=== PATIENT | male | born 1955 | race Caucasian/White ===

== ENCOUNTER → 2017-09-12 17:53 | Emergency (ER) | payer BC, OTHER ==
[~2017-09-12 17:53] MED LIST: Acetaminop/Codeine 30 MG TAB* 1 TAB (300 MG/30 MG) PO ONE
[2017-09-12 18:47] VITALS: BP 154/75
--- NOTE | 2017-09-12 18:48 | UC ---
Back Pain HPI - HPI Summary HPI Summary: 62 year old male presents with right upper back pain after falling while shoveling snow. - History of Current Complaint Chief Complaint: UCBackPain Stated Complaint: FALL/ BACK PAIN Time Seen by Provider: 09/12/17 18:39 Hx Obtained From: Patient Onset/Duration: Sudden Onset Severity Initially: Moderate Severity Currently: Moderate Pain Scale Used: 0-10 Numeric - 7 Character: Sharp Aggravating Factor(s): Movement Alleviating Factor(s): Position - Allergies/Home Medications Allergies/Adverse Reactions: Allergies Allergy/AdvReac Type Severity Reaction Status Date / Time Rifampin Allergy Severe Itching Verified 09/12/17 18:42 Home Medications: Home Medications Ibuprofen [Ibuprofen 200 MG] 200 mg PO Q6HR PRN 09/12/17 [History Confirmed ] PMH/Surg Hx/FS Hx/Imm Hx Previously Healthy: Yes - Surgical History Surgical History: Yes Surgery Procedure, Year, and Place: KIDNEY STENTS (REMOVED) - Family History Known Family History: Positive: None - Social History Alcohol Use: Occasionally Substance Use Type: None Smoking Status (MU): Former Smoker Amount Used/How Often: 2 PPD X 20 YEARS Have You Smoked in the Last Year: No When Did the Patient Quit Smoking/Using Tobacco: 25 YEARS AGO - Immunization History Most Recent Influenza Vaccination: 05/2017 Review of Systems Constitutional: Negative Skin: Negative Eyes: Negative ENT: Negative Respiratory: Negative Cardiovascular: Negative Gastrointestinal: Negative Genitourinary: Negative Motor: Negative Neurovascular: Negative Musculoskeletal: Other: - right upper back pain Neurological: Negative Psychological: Negative All Other Systems Reviewed And Are Negative: Yes Physical Exam Triage Information Reviewed: Yes Vital Signs: Initial Vital Signs Temp 36.9 C 09/12/17 18:37 Pulse 94 09/12/17 18:37 Resp 16 09/12/17 18:37 BP 154/75 09/12/17 18:37 Pulse Ox 97 09/12/17 18:37 Vital Signs Reviewed: Yes Eye Exam: Normal ENT Exam: Normal Dental Exam: Normal Neck exam: Normal Neck: Positive: 1 Respiratory Exam: Normal Cardiovascular Exam: Normal Abdominal Exam: Normal Musculoskeletal: Positive: Other: - right upper back pain Neurological Exam: Normal Psychological Exam: Normal Skin Exam: Normal Back Pain Course/Dx - Differential Dx/Diagnosis Provider Diagnoses: right upper back and rib contusion Discharge - Discharge Plan Condition: Stable Disposition: HOME Prescriptions: Meloxicam [Mobic] 7.5 mg PO BID #30 tab Methocarbamol TAB* [Robaxin 500 MG TAB*] 500 mg PO TID PRN #30 tab PRN Reason: Spasms - Back Patient Education Materials: Back Pain (ED) Referrals: Abilio Yeh MD [Primary Care Provider] -
--- NOTE | 2017-09-12 19:12 | RAD ---
INDICATION: Right rib pain. Fall. COMPARISON: Chest x-ray January 10, 2012 TECHNIQUE: Multiple views of the ribs were obtained. FINDINGS: Bones: There is no evidence of acute rib fracture. LUNGS: There are interstitial lung changes. Some of these findings could reflect interstitial edema. Aeration is improved from the earlier chest x-ray from 2012. There is no pneumothorax. Pleural spaces: There is no evidence of hemothorax. Other: None IMPRESSION: NO ACUTE RIB FRACTURE. INTERSTITIAL LUNG CHANGES.
== END | disposition home or self-care (01) ==
LOC: UCEAST 17:53
DX: S20.221A Contusion of right back wall of thorax, initial encounter (principal); T14.8XXA Other injury of unspecified body region, initial encounter; W19.XXXA Unspecified fall, initial encounter; Y93.H1 Activity, digging, shoveling and raking; Y92.9 Unspecified place or not applicable; Y99.9 Unspecified external cause status
CPT/HCPCS: 99212; A9270-GY; G0463

== ENCOUNTER 2017-10-19 08:39 | Emergency (ER) | payer BC, OTHER ==
[2017-10-19 09:40] VITALS: BP 149/73
--- NOTE | 2017-10-19 10:02 | UC ---
Respiratory Complaint HPI - HPI Summary HPI Summary: Pain and burning in throat and bronchial area with cough getting worse of the past 4-5 days--denies chest pain KENNEY,SOB - History of Current Complaint Chief Complaint: UCGeneralIllness Stated Complaint: URI Time Seen by Provider: 10/19/17 09:52 Hx Obtained From: Patient Onset/Duration: Gradual Onset, Lasting Days - 5-6, Still Present Timing: Constant Severity Initially: Mild Severity Currently: Moderate Character: Cough: Productive Associated Signs And Symptoms: Positive: Pleuritic Chest Pain, Wheezing, URI - Allergies/Home Medications Allergies/Adverse Reactions: Allergies Allergy/AdvReac Type Severity Reaction Status Date / Time Rifampin Allergy Severe Itching Verified 10/19/17 09:39 PMH/Surg Hx/FS Hx/Imm Hx Previously Healthy: No Cardiovascular History: Hypertension - Surgical History Surgical History: Yes Surgery Procedure, Year, and Place: KIDNEY STENTS (REMOVED) - Family History Known Family History: Positive: None - Social History Occupation: Employed Full-time Lives: With Family Alcohol Use: Occasionally Substance Use Type: None Smoking Status (MU): Former Smoker Amount Used/How Often: 2 PPD X 20 YEARS Have You Smoked in the Last Year: No When Did the Patient Quit Smoking/Using Tobacco: 25 YEARS AGO - Immunization History Most Recent Influenza Vaccination: 05/2017 Review of Systems Constitutional: Negative Skin: Negative Eyes: Negative ENT: Nasal Discharge Respiratory: Cough Cardiovascular: Negative Gastrointestinal: Negative Genitourinary: Negative Motor: Negative Neurovascular: Negative Musculoskeletal: Negative Neurological: Negative Psychological: Negative Is Patient Immunocompromised?: No All Other Systems Reviewed And Are Negative: Yes Physical Exam Triage Information Reviewed: Yes Appearance: Well-Appearing, No Pain Distress, Well-Nourished Vital Signs: Initial Vital Signs Temp 98.3 F 10/19/17 09:30 Pulse 91 10/19/17 09:30 Resp 19 10/19/17 09:30 BP 149/73 10/19/17 09:30 Pulse Ox 98 10/19/17 09:30 Vital Signs Reviewed: Yes Eye Exam: Normal Eyes: Positive: Conjunctiva Clear ENT Exam: Normal ENT: Positive: Normal ENT inspection, Hearing grossly normal, Pharynx normal, Nasal congestion - irratation in nasal septum--had a bloddy nose yesterday with cough may use small amount of vaseline on septum, TMs normal, Uvula midline. Negative: Tonsillar swelling, Tonsillar exudate, Trismus, Muffled voice, Hoarse voice, Dental tenderness, Sinus tenderness Dental Exam: Normal Neck exam: Normal Neck: Positive: Supple, Nontender, No Lymphadenopathy Respiratory Exam: Normal Respiratory: Positive: Chest non-tender, Lungs clear, Normal breath sounds, No respiratory distress, No accessory muscle use Cardiovascular Exam: Normal Cardiovascular: Positive: RRR, No Murmur, Pulses Normal, Brisk Capillary Refill Musculoskeletal Exam: Normal Musculoskeletal: Positive: Strength Intact, ROM Intact, No Edema Neurological Exam: Normal Neurological: Positive: Alert, Muscle Tone Normal, Fatigued Psychological Exam: Normal Skin Exam: Normal UC Diagnostic Evaluation - Laboratory O2 Sat by Pulse Oximetry: 98 Respiratory Course/Dx - Course Course Of Treatment: Zithromax, mucines, albuterol, prednisone, small amount of vaseline on nasal septum, follow with pcp - Differential Dx/Diagnosis Provider Diagnoses: Bronchitis, epistaxis, hypertension in poor control Discharge - Discharge Plan Condition: Stable Disposition: HOME Prescriptions: Albuterol HFA INHALER* [Ventolin HFA Inhaler*] 2 puff INH Q4H PRN #1 mdi PRN Reason: cough, wheezing Azithromycin TAB* [Zithromax TAB (Z-NORMA) 250 mg #6 tabs] 2 tab PO .TODAY, THEN 1 DAILY #1 norma predniSONE TAB* [Deltasone TAB*] 20 mg PO DAILY 5 Days #10 tab Patient Education Materials: Acute Bronchitis (ED), Hypertension (ED) Forms: *Work Release Referrals: Abilio Yeh MD [Primary Care Provider] - 2 Weeks
== END 2017-10-19 10:15 | disposition home or self-care (01) ==
LOC: UCEAST 08:39
DX: J40 Bronchitis, not specified as acute or chronic (principal); R04.0 Epistaxis; I10 Essential (primary) hypertension
CPT/HCPCS: 99212; G0463

== ENCOUNTER 2017-10-31 23:55 | Emergency (ER) | payer BC, OTHER ==
[2017-11-01] MEDS ORDERED: Octreotide Acetate* 500 MCG/ML 1 ML VIAL IVPB ONE (00:08)
[2017-11-01] MEDS ORDERED: Octreotide Acetate* 500 MCG in NS 0.9% 100 ML* 100 ML IVPB SCH (01:00)
[2017-11-01] MEDS ORDERED: Levofloxacin 750 MG IVPREMIX(* 750 MG/150 ML BAG IVPB ONE (01:05)
[2017-11-01 01:16] LABS: Hematocrit 43 % (42-52); Hemoglobin 15.1 g/dl (14.0-18.0); Mean Corpuscular HGB Conc 35 g/dl (31-36); Mean Corpuscular Hemoglobin 34 pg (27-31); Mean Corpuscular Volume 96 fL (80-94); Mean Platelet Volume 6 um3 (7.4-10.4); Platelet Count 378 10^3/ul (150-450); Red Blood Count 4.44 10^6/ul (4.0-5.4); Red Cell Distribution Width 13 % (10.5-15); White Blood Count 6.9 10^3/ul (3.5-10.8)
[2017-11-01 01:43] LABS: ABS Basophils 0 10^3/ul (0-0.2); ABS Eosinophils 0.1 10^3/ul (0-0.6); ABS Lymphocytes 1.2 10^3/ul (1.0-4.8); ABS Monocytes 0.6 10^3/ul (0-0.8); ABS Nucleated RBC 0 10^3/ul; Eosinophil % 1.4 % (0-6); Lymphocyte % 17.5 % (25-47); Nucleated Red Blood Cells % 0
--- NOTE | 2017-11-01 03:29 | ED ---
Roxann Munson Edward, scribed for Jeremy Landers MD on 11/01/17 at 0018 . GI/ HPI - HPI Summary HPI Summary: 62 y/o male presents to the ED c/o cough with blood for the past 2 hours. The cough was described as "scratchy" tonight. Pt has had flu-like symptoms for the past week including a cough. Pt was seen at Urgent Care and placed on abx several days ago. Denies vomiting. Associated sx: ABD pain yesterday. Occasional EtOH use. - History of Current Complaint Chief Complaint: EDUpperRespComplaint Time Seen by Provider: 11/01/17 00:07 Stated Complaint: COUGHING UP BLOOD Hx Obtained From: Patient Onset/Duration: Started Minutes Ago Timing: Intermittent - coughing blood Pain Intensity: 0 Associated Signs and Symptoms: Positive: Cough, Other: - flu-like symptoms - Allergy/Home Medications Allergies/Adverse Reactions: Allergies Allergy/AdvReac Type Severity Reaction Status Date / Time MS Rifampin [Rifampin] Allergy Severe Itching Verified 10/19/17 09:39 PMH/Surg Hx/FS Hx/Imm Hx Previously Healthy: No Endocrine/Hematology History: Denies: Hx Diabetes, Hx Thyroid Disease Cardiovascular History: Reports: Hx Hypertension - ON MEDICATION FOR Respiratory History: Denies: Hx Asthma, Hx Chronic Obstructive Pulmonary Disease (COPD) GI History: Denies: Hx Ulcer History: Reports: Hx Kidney Infection - HX OF-LAST 2-3 YEARS AGO, Other Problems/Disorders - BLADDER INFECTION 3 MONTHS AGO Musculoskeletal History: Denies: Hx Rheumatoid Arthritis, Hx Osteoporosis Sensory History: Denies: Hx Contacts or Glasses, Hx Hearing Aid Opthamlomology History: Denies: Hx Contacts or Glasses - Surgical History Surgery Procedure, Year, and Place: KIDNEY STENTS (REMOVED) Hx Anesthesia Reactions: No Infectious Disease History: No Infectious Disease History: Denies: Hx Clostridium Difficile, Hx Hepatitis, Hx Human Immunodeficiency Virus (HIV), Hx of Known/Suspected MRSA, Hx Shingles, Hx Tuberculosis, Hx Known/ Suspected VRE, Hx Known/Suspected VRSA, History Other Infectious Disease, Traveled Outside the [place] in Last 30 Days - Family History Known Family History: Positive: None - Social History Alcohol Use: Occasionally Hx Substance Use: No Substance Use Type: Reports: None Hx Tobacco Use: Yes Smoking Status (MU): Former Smoker Amount Used/How Often: 2 PPD X 20 YEARS Have You Smoked in the Last Year: No Review of Systems Constitutional: Negative Eyes: Negative ENT: Negative Cardiovascular: Negative Positive: Cough - with blood Positive: Abdominal Pain - yesterday Genitourinary: Negative Musculoskeletal: Negative Skin: Negative Neurological: Negative Psychological: Normal All Other Systems Reviewed And Are Negative: Yes Physical Exam - Summary Physical Exam Summary: Appearance: Well-appearing, Well-nourished Skin: Small amount of dried blood around the mouth, no active bleeding Eyes: Normal ENT: Normal Neck: Supple, nontender Respiratory: Rhonchi diffusely and bilaterally Cardiovascular: Normal S1, S2. No murmurs. Normal distal pulses in tibial and radial bilaterally. Abdomen: Soft, nontender Musculoskeletal: Normal, Strength/ROM Intact Neurological: Normal, A&Ox3 Psychiatric: Normal Triage Information Reviewed: Yes Vital Signs On Initial Exam: Initial Vitals Temp Pulse Resp BP Pulse Ox 98.6 F 108 24 132/52 93 10/31/17 23:56 10/31/17 23:56 10/31/17 23:56 10/31/17 23:56 10/31/17 23:56 Vital Signs Reviewed: Yes Diagnostics - Vital Signs Vital Signs Temp Pulse Resp BP Pulse Ox 10/31/17 23:56 98.6 F 108 24 132/52 93 - Laboratory Lab Results: Lab Results 11/01/17 11/01/17 11/01/17 Range/Units 01:05 01:05 01:05 WBC 6.9 (3.5-10.8) 10^3/ul RBC 4.44 (4.0-5.4) 10^6/ul Hgb 15.1 (14.0-18.0) g/dl Hct 43 (42-52) % MCV 96 H (80-94) fL MCH 34 H (27-31) pg MCHC 35 (31-36) g/dl RDW 13 (10.5-15) % Plt Count 378 (150-450) 10^3/ul MPV 6 L (7.4-10.4) um3 Neut % (Auto) 72.5 (38-83) % Lymph % (Auto) 17.5 L (25-47) % Greene % (Auto) 8.1 (1-9) % Eos % (Auto) 1.4 (0-6) % Baso % (Auto) 0.5 (0-2) % Absolute Neuts (auto) 5.0 (1.5-7.7) 10^3/ul Absolute Lymphs (auto) 1.2 (1.0-4.8) 10^3/ul Absolute Monos (auto) 0.6 (0-0.8) 10^3/ul Absolute Eos (auto) 0.1 (0-0.6) 10^3/ul Absolute Basos (auto) 0 (0-0.2) 10^3/ul Absolute Nucleated RBC 0 10^3/ul Nucleated RBC % 0 INR (Anticoag Therapy) 1.00 (0.77-1.02) APTT 29.9 (26.0-36.3) seconds Sodium 119 L* (133-145) mmol/L Potassium 4.0 (3.5-5.0) mmol/L Chloride 87 L (101-111) mmol/L Carbon Dioxide 21 L (22-32) mmol/L Anion Gap 11 (2-11) mmol/L BUN 11 (6-24) mg/dL Creatinine 0.67 (0.67-1.17) mg/dL Est GFR ( Amer) 155.6 (>60) Est GFR (Non-Af Amer) 121.0 (>60) BUN/Creatinine Ratio 16.4 (8-20) Glucose 141 H (70-100) mg/dL Calcium 9.0 (8.6-10.3) mg/dL Total Bilirubin 0.60 (0.2-1.0) mg/dL AST 33 (13-39) U/L ALT 23 (7-52) U/L Alkaline Phosphatase 125 H (34-104) U/L Total Protein 7.5 (6.4-8.9) g/dL Albumin 3.6 (3.2-5.2) g/dL Globulin 3.9 (2-4) g/dL Albumin/Globulin Ratio 0.9 L (1-3) Serum Alcohol 118 H (<10) mg/dL Blood Type Antibody Screen 11/01/17 Range/Units 01:05 WBC (3.5-10.8) 10^3/ul RBC (4.0-5.4) 10^6/ul Hgb (14.0-18.0) g/dl Hct (42-52) % MCV (80-94) fL MCH (27-31) pg MCHC (31-36) g/dl RDW (10.5-15) % Plt Count (150-450) 10^3/ul MPV (7.4-10.4) um3 Neut % (Auto) (38-83) % Lymph % (Auto) (25-47) % Greene % (Auto) (1-9) % Eos % (Auto) (0-6) % Baso % (Auto) (0-2) % Absolute Neuts (auto) (1.5-7.7) 10^3/ul Absolute Lymphs (auto) (1.0-4.8) 10^3/ul Absolute Monos (auto) (0-0.8) 10^3/ul Absolute Eos (auto) (0-0.6) 10^3/ul Absolute Basos (auto) (0-0.2) 10^3/ul Absolute Nucleated RBC 10^3/ul Nucleated RBC % INR (Anticoag Therapy) (0.77-1.02) APTT (26.0-36.3) seconds Sodium (133-145) mmol/L Potassium (3.5-5.0) mmol/L Chloride (101-111) mmol/L Carbon Dioxide (22-32) mmol/L Anion Gap (2-11) mmol/L BUN (6-24) mg/dL Creatinine (0.67-1.17) mg/dL Est GFR ( Amer) (>60) Est GFR (Non-Af Amer) (>60) BUN/Creatinine Ratio (8-20) Glucose (70-100) mg/dL Calcium (8.6-10.3) mg/dL Total Bilirubin (0.2-1.0) mg/dL AST (13-39) U/L ALT (7-52) U/L Alkaline Phosphatase (34-104) U/L Total Protein (6.4-8.9) g/dL Albumin (3.2-5.2) g/dL Globulin (2-4) g/dL Albumin/Globulin Ratio (1-3) Serum Alcohol (<10) mg/dL Blood Type B Positive Antibody Screen Negative Result Diagrams: 11/01/17 01:05 11/01/17 01:05 Lab Statement: Any lab studies that have been ordered have been reviewed, and results considered in the medical decision making process. - Radiology CXR Radiology Interpretation Completed By: ED Physician - Bilateral opacities. Ground glass appearance. Consistent with priors. GIGU Course/Dx - Course Course Of Treatment: Gross hemoptysis improved. Patient is hemodynamically stable and in no acute respiratory distress. He is neurologically intact. Spoke with hospitalist who recommended patient be transferred to a facility with bronchoscopy capability. Patient agrees to be transferred. - Diagnoses Provider Diagnoses: Hemoptysis, Lung disease, interstitial - Physician Notifications Discussed Care Of Patient With: Yash Gaytan Time Discussed With Above Provider: 02:30 Instructed by Provider To: Other - At 02:30, Dr. Gaytan (hospitalist) recommended to transfer patient to [facility]. At 02:55, Dr. Montelongo from [facility] accepted the patient. Discharge - Discharge Plan Condition: Stable Disposition: TRANS HIGHER LVL OF CARE FAC Referrals: Abilio Yeh MD [Primary Care Provider] - The documentation as recorded by the Roxann guy Edward accurately reflects the service I personally performed and the decisions made by Leesa dorantes Dong, MD.
[2017-11-01 04:04] VITALS: BP 143/76
--- NOTE | 2017-11-01 08:25 | RAD ---
INDICATION: Hemoptysis COMPARISON: None TECHNIQUE: Axial source images of the chest were acquired without intravenous contrast from just above the lung apices to the base of the diaphragm. Coronal and sagittal reconstructed images were acquired. FINDINGS: There is diffuse parenchymal density and interstitial thickening more severely affecting the left lung. There is bronchiectatic dilatation of the medium and small airways. There is no definite large focal or lobar density. The heart is normal in size. There is no evidence of pericardial effusion. There is no evidence of aortic aneurysm or dissection. There are innumerable mediastinal lymph nodes, some top normal, but none are pathologically enlarged. The osseous structures appear normal. Limited views of the upper abdomen show no acute abnormalities. IMPRESSION: In the chronic setting the appearance of the lungs is consistent with interstitial lung disease. In the more acute setting the appearance could be due to pulmonary edema, pneumonia or pneumonitis.
--- NOTE | 2017-11-01 08:29 | RAD ---
INDICATION: Hemoptysis COMPARISON: Similar chest x-ray dated January 10, 2012 TECHNIQUE: Single AP portable view of the chest was obtained. FINDINGS: Image quality is compromised due to the relative inferiority of a portable chest x-ray. The heart and mediastinum exhibit normal size and contour. There is diffuse patchy densities and interstitial density evenly distributed over the bilateral lungs. Visualized bones are normal for the patient's age. IMPRESSION: Diffuse reticulonodular densities overlying the bilateral lungs are slightly improved when compared to the January 10, 2012 chest x-ray. Differential includes interstitial lung disease in the chronic setting or pulmonary edema, pneumonia or pneumonitis in the more acute setting.
--- NOTE | 2017-11-01 21:29 | ED ---
Progress - Progress Note Progress Note: Pt's CXR read by radiology IMPRESSION: Diffuse reticulonodular densities overlying the bilateral lungs are slightly improved when compared to the January 10, 2012 chest x-ray. Differential includes interstitial lung disease in the chronic setting or pulmonary edema, pneumonia or pneumonitis in the more acute setting. Pt was transferred to [facility]. Will fax results. nico Woodall clerk, aware. Course/Dx - Course Course Of Treatment: Gross hemoptysis improved. Patient is hemodynamically stable and in no acute respiratory distress. He is neurologically intact. Spoke with hospitalist who recommended patient be transferred to a facility with bronchoscopy capability. Patient agrees to be transferred. - Diagnoses Provider Diagnoses: Hemoptysis, Lung disease, interstitial - Provider Notifications Time Discussed With Above Provider: 02:30 Instructed by Provider To: Other - At 02:30, Dr. Gaytan (hospitalist) recommended to transfer patient to [facility]. At 02:55, Dr. Montelongo from [facility] accepted the patient.
== END 2017-11-01 04:03 | disposition short-term general hospital (02) ==
LOC: ED 23:55
DX: R04.2 Hemoptysis (principal); J84.9 Interstitial pulmonary disease, unspecified; R05 Cough; Z86.79 Personal history of other diseases of the circulatory system; Z87.891 Personal history of nicotine dependence
CPT/HCPCS: 36415; 71045; 71250; 80053; 80320; 85025; 85610; 85730; 86850; 86900; 86901; 99284; G0480

== ENCOUNTER 2019-11-01 11:04 | Observation (INO) | payer OTHER ==
[2019-11-01 11:29] LABS: ABS Eosinophils 0.1 10^3/ul (0-0.6); ABS Lymphocytes 0.9 10^3/ul (1.0-4.8); ABS Monocytes 0.9 10^3/ul (0-0.8); ABS Neutrophils 6.6 10^3/ul (1.5-7.7); Eosinophil % 1.4 %; Hematocrit 49 % (42-52); Hemoglobin 17.1 g/dL (14.0-18.0); Lymphocyte % 10.1 %; Mean Corpuscular HGB Conc 35 g/dL (31-36); Mean Corpuscular Hemoglobin 34 pg (27-31); Mean Corpuscular Volume 97 fL (80-94); Mean Platelet Volume 6.4 fL (7.4-10.4); Nucleated Red Blood Cells % 0.1; Platelet Count 302 10^3/uL (150-450); Red Blood Count 5.03 10^6 /uL (4.18-5.48); Red Cell Distribution Width 13 % (10-15); White Blood Count 8.5 10^3/uL (3.5-10.8)
[2019-11-01 11:51] LABS: Albumin 3.4 g/dL (3.2-5.2); Albumin/Globulin Ratio 0.8 (1-3); BUN/Creatinine Ratio 12.7 (8-20); Calcium 9.1 mg/dL (8.6-10.3); EGFR Non-African American 112.4 (>60); Globulin 4.1 g/dL (2-4); INR 1.11 (0.82-1.09); Potassium 4.8 mmol/L (3.5-5.0); Total Bilirubin 1.1 mg/dL (0.2-1.0); Total Protein 7.5 g/dL (6.4-8.9)
[2019-11-01 11:53] LABS: Troponin I 0.01 ng/mL (<0.03)
--- NOTE | 2019-11-01 12:03 | ED ---
Neurological HPI - HPI Summary HPI Summary: Patient is a 64 y/o M presenting to [facility] with complaints of left fingertips numbness, left thigh numbness, left upper lip numbness. Patient states that this morning, 11/01/19, he began to see flashing lights. He notes Hx of migraines and states that this Sx is a frequent precursor to his migraines. However, instead of experiencing a RICHTER, he had onset of left fingertips numbness, left thigh numbness, left upper lip numbness. Patient notes that he has not experienced these Sx with his migraines previously. These Sx are estimated to have onset around 1020 11/01/19. Sx lasted approximately 5 minutes in total and then resolved. Currently, patient states that he is at his baseline. Weakness is denied. denies any slurred speech or facial droop in the patient. PHMx of afib noted, patient states that he used to be on blood thinners but was taken off of his anticoagulation therapy due to frequent epistaxis. He states that he is "supposed to be" on ASA but does not take it regularly. PMHx of interstitial lung disease noted. Hx of HTN is reported as well for which the patient is on medications. Patient believes that he had a recent cardiac stress test. He does not have a neurologist currently. He is a non-smoker, notes occasional alcohol usage, and denies recreational drug usage. Patient is retired. Home medications and allergies are reviewed. - History of Current Complaint Chief Complaint: EDNeurologicalDeficit Stated Complaint: NUMBNESSS IN FINGERS AND MOUTH PER PT Time Seen by Provider: 11/01/19 11:49 Hx Obtained From: Patient Onset/Duration: Started hours ago, Resolved Timing: Intermittent Episodes Lasting: Current Severity: None Neurological Deficit Location: Facial - left upper lip, LUE, LLE Pain Intensity: 0 Character: Numbness/Tingling Associated Signs and Symptoms: Positive: Visual Changes - flashing lights in vision, Numbness. Negative: Weakness, Impaired Speech - Allergy/Home Medications Allergies/Adverse Reactions: Allergies Allergy/AdvReac Type Severity Reaction Status Date / Time rifampin Allergy Severe Itching Verified 11/01/19 15:10 Home Medications: Home Medications Diltiazem CD CAP* [Cardizem CD CAP*] 120 mg PO DAILY 11/01/19 [History Confirmed 11/01/19] Fluticas/Salmet 230/21 HFA(NF) [Advair HFA 23O/21 (NF)] 1 puff INH BID 11/01/19 [History Confirmed 11/01/19] LevoCETirizine TAB (NF) [Xyzal TAB (NF)] 5 mg PO DAILY 11/01/19 [History Confirmed 11/01/19] Mometasone NASAL (NF) [Nasonex (NF)] 2 spray BOTH NARES DAILY 11/01/19 [History Confirmed 11/01/19] Multivitamins/Minerals TAB* [Theragran/minerals TAB*] 1 tab PO DAILY 11/01/19 [ History Confirmed 11/01/19] PMH/Surg Hx/FS Hx/Imm Hx Endocrine/Hematology History: Denies: Hx Diabetes, Hx Thyroid Disease Cardiovascular History: Reports: Hx Atrial Fibrillation, Hx Hypertension - ON MEDICATION FOR Respiratory History: Denies: Hx Asthma, Hx Chronic Obstructive Pulmonary Disease (COPD) GI History: Denies: Hx Ulcer History: Reports: Hx Kidney Infection - HX OF-LAST 2-3 YEARS AGO, Other Problems/Disorders - BLADDER INFECTION 3 MONTHS AGO Musculoskeletal History: Denies: Hx Rheumatoid Arthritis, Hx Osteoporosis Sensory History: Denies: Hx Contacts or Glasses, Hx Hearing Aid Opthamlomology History: Denies: Hx Contacts or Glasses Neurological History: Reports: Hx Migraine - Surgical History Surgery Procedure, Year, and Place: KIDNEY STENTS (REMOVED) Hx Anesthesia Reactions: No - Immunization History Immunizations Up to Date: Yes Infectious Disease History: No Infectious Disease History: Denies: Hx Clostridium Difficile, Hx Hepatitis, Hx Human Immunodeficiency Virus (HIV), Hx of Known/Suspected MRSA, Hx Shingles, Hx Tuberculosis, Hx Known/ Suspected VRE, Hx Known/Suspected VRSA, History Other Infectious Disease, Traveled Outside the [place] in Last 30 Days - Family History Known Family History: Positive: Cardiac Disease, Hypertension - Social History Alcohol Use: Occasionally Hx Substance Use: No Substance Use Type: Reports: None Hx Tobacco Use: Yes Smoking Status (MU): Former Smoker Amount Used/How Often: 2 PPD X 20 YEARS Have You Smoked in the Last Year: No Review of Systems Positive: Other - flashing lights in vision Positive: Numbness. Negative: Weakness, Slurred Speech All Other Systems Reviewed And Are Negative: Yes Physical Exam - Summary Physical Exam Summary: Constitutional: Well-developed, Well-nourished, Alert. (-) Distressed Skin: Warm, Dry HENT: Normocephalic; Atraumatic Eyes: Conjunctiva normal Neck: Musculoskeletal ROM normal neck. (-) JVD, (-) Stridor, (-) Tracheal deviation Cardio: Rhythm regular, rate normal, Heart sounds normal; Intact distal pulses. Radial pulses are 2+ and symmetric. (-) Murmur Pulmonary/Chest wall: Effort normal. (-) Respiratory distress, (-) Wheezes, (-) Rales Abd: Soft. (-) Tenderness, (-) Distension, (-) Guarding, (-) Rebound Musculoskeletal: (-) Edema Lymph: (-) Cervical adenopathy Neuro: Alert, Oriented x3, Strength normal, Cranial nerves II-XII are grossly intact. (-) Dysmetria, (-) Nystagmus, (-) Ataxia by finger to nose testing, (-) Sensory deficit. GCS 15. NIH 0. Psych: Mood and affect Normal Triage Information Reviewed: Yes Vital Signs On Initial Exam: Initial Vitals Temp Pulse Resp BP Pulse Ox 97.8 F 135 18 125/90 96 11/01/19 11:07 11/01/19 11:07 11/01/19 11:07 11/01/19 11:07 11/01/19 11:07 Vital Signs Reviewed: Yes - [place] Coma Scale Best Eye Response: 4 - Spontaneous Best Motor Response: 6 - Obeys Commands Best Verbal Response: 5 - Oriented Coma Scale Total: 15 Procedures - Sedation Patient Received Moderate/Deep Sedation with Procedure: No Diagnostics - Vital Signs Vital Signs Temp Pulse Resp BP Pulse Ox 11/01/19 11:07 97.8 F 135 18 125/90 96 - Laboratory Lab Results: Lab Results 11/01/19 11/01/19 Range/Units 11:17 11:17 WBC 8.5 (3.5-10.8) 10^3/uL RBC 5.03 (4.18-5.48) 10^6 /uL Hgb 17.1 (14.0-18.0) g/dL Hct 49 (42-52) % MCV 97 H (80-94) fL MCH 34 H (27-31) pg MCHC 35 (31-36) g/dL RDW 13 (10-15) % Plt Count 302 (150-450) 10^3/uL MPV 6.4 L (7.4-10.4) fL Neut % (Auto) 77.6 % Lymph % (Auto) 10.1 % [place]ck[place] % (Auto) 10.6 % Eos % (Auto) 1.4 % Baso % (Auto) 0.3 % Absolute Neuts (auto) 6.6 (1.5-7.7) 10^3/ul Absolute Lymphs (auto) 0.9 L (1.0-4.8) 10^3/ul Absolute Monos (auto) 0.9 H (0-0.8) 10^3/ul Absolute Eos (auto) 0.1 (0-0.6) 10^3/ul Absolute Basos (auto) 0.0 (0-0.2) 10^3/ul Absolute Nucleated RBC 0.0 10^3/ul Nucleated RBC % 0.1 Sodium 122 L (135-145) mmol/L Potassium 4.8 (3.5-5.0) mmol/L Chloride 90 L (101-111) mmol/L Carbon Dioxide 27 (22-32) mmol/L Anion Gap 5 (2-11) mmol/L BUN 9 (6-24) mg/dL Creatinine 0.71 (0.67-1.17) mg/dL Est GFR ( Amer) 136.0 (>60) Est GFR (Non-Af Amer) 112.4 (>60) BUN/Creatinine Ratio 12.7 (8-20) Glucose 159 H (70-100) mg/dL Calcium 9.1 (8.6-10.3) mg/dL Total Bilirubin 1.10 H (0.2-1.0) mg/dL AST 45 H (13-39) U/L ALT 22 (7-52) U/L Alkaline Phosphatase 153 H (34-104) U/L Troponin I 0.01 (<0.03) ng/mL Total Protein 7.5 (6.4-8.9) g/dL Albumin 3.4 (3.2-5.2) g/dL Globulin 4.1 H (2-4) g/dL Albumin/Globulin Ratio 0.8 L (1-3) Result Diagrams: 11/01/19 11:17 11/01/19 11:17 Lab Statement: Any lab studies that have been ordered have been reviewed, and results considered in the medical decision making process. - CT BRAIN CT CT Interpretation Completed By: Radiologist Summary of CT Findings: IMPRESSION: 1. No acute intracranial abnormality identified on this motion degraded CT. THIS REPORT WAS REVIEWED BY ED PHYSICIAN. - EKG 1117 Cardiac Rate: Other Rate - afib with RVR EKG Rhythm: Atrial Fibrillation Summary of EKG Findings: EKG showed afib with RVR, 114 BPM, no STEMI. ED physician has reviewed and interpreted this EKG. NIH Scale - NIH Scale Level of Consciousness: Alert/Keenly Responsive Ask Patient the Month and His/Her Age: Both Correct Ask Pt to Open/Close Eyes and [employer] Manager/Release Non-Paretic Hand: Both Correctly Best Gaze (Only Horizontal Eye Movement): Normal Visual Field Testing: No Visual Loss Facial Paresis-Pt to Smile & Close Eyes or Grimace Symmetry: Normal/Symmetrical Motor Function - Right Arm: No Drift-Holds 10 Seconds Motor Function - Left Arm: No Drift-Holds 10 Seconds Motor Function - Right Leg: No Drift-Holds 10 Seconds Motor Function - Left Leg: No Drift-Holds 10 Seconds Limb Ataxia-Must be out of Proportion to Weakness Present: Absent Sensory (Use Pinprick to Test Arms/Legs/Trunk/Face): Normal Best Language (Describe Picture, Name Items): No Aphasia Dysarthria (Read Several Words): Normal Extinction and Inattention: No Abnormality Total Score: 0 Course/Dx - Course Course Of Treatment: Patient is here with possible TIA. Patient had an episode of left-sided numbness and his lips, fingertips, 5. Patient's symptoms resolved by the time he got here. Patient had a CT scan of his brain which is negative. Patient had blood or performed which was grossly unremarkable outside of hyponatremia. Patient does drink a sixpack a day and this is likely the etiology. Neurology was called and they recommended admitting for a TIA workup and treatment of his hyponatremia - Diagnoses Provider Diagnoses: TIA (transient ischemic attack), Neurological deficit, transient - Physician Notifications Discussed Care Of Patient With: Kilo Tristan Time Discussed With Above Provider: 12:20 Instructed by Provider To: Other - 1220 - Patient's case was discussed with Dr. Tristan, Dr. Tristan recommends admission for TIA workup. 1318 - Patient's case was discussed with Dr. Ramsey, Dr. Ramsey accepts for admission. - Critical Care Time Critical Care Time: 30-74 min - 35 minutes CCT Discharge ED - Sign-Out/Discharge Documenting (check all that apply): Patient Departure - admit - Discharge Plan Condition: Stable Disposition: ADMITTED TO [facility] - Billing Disposition and Condition Condition: STABLE Disposition: Admitted to [facility] - Attestation Statements Document Initiated by Nancy: Yes Documenting Scribe: ADAMA HERNANDEZ Provider For Whom Nancy is Documenting (Include Credential): YASH JIMENEZ MD Scribe Attestation: ADAMA Munson, scribed for YASH JIMENEZ MD on 11/01/19 at 2128. Scribe Documentation Reviewed: Yes Provider Attestation: The documentation as recorded by the coryibADAMA garvey accurately reflects the service I personally performed and the decisions made by me, YASH JIMENEZ MD Status of Scribe Document: Viewed
[2019-11-01] MEDS ORDERED: Albuterol HFA INHALER* 8 gm MDI INH PRN (14:28)
[2019-11-01] MEDS ORDERED: Aspirin 81 mg CHEW TAB* 81 MG TAB.CHEW PO ONE (15:22)
--- NOTE | 2019-11-01 15:27 | ADMNOTE ---
Subjective Date of Service: 11/01/19 Interval History: ADMISSION HISTORY AND PHYSICAL EXAM: Allergies Allergy/AdvReac Type Severity Reaction Status Date / Time rifampin Allergy Severe Itching Verified 11/01/19 15:10 Home Medications Medication Instructions Recorded Confirmed Type Aspirin 81 mg CHEW TAB* 81 mg PO DAILY 11/01/12 11/01/19 History Tadalafil [Cialis] 5 mg PO DAILY 11/01/12 11/01/19 History Atenolol TAB* [Tenormin TAB* 50 MG] 25 mg PO DAILY 04/12/13 11/01/19 History Albuterol HFA INHALER* [Ventolin 2 puff INH Q4H PRN #1 mdi 10/19/17 11/01/19 Rx HFA Inhaler*] Diltiazem CD CAP* [Cardizem CD 120 mg PO DAILY 11/01/19 11/01/19 History CAP*] Fluticas/Salmet 230/21 HFA(NF) 1 puff INH BID 11/01/19 11/01/19 History [Advair HFA 23O/21 (NF)] LevoCETirizine TAB (NF) [Xyzal TAB 5 mg PO DAILY 11/01/19 11/01/19 History (NF)] Mometasone NASAL (NF) [Nasonex 2 spray BOTH NARES DAILY 11/01/19 11/01/19 History (NF)] Multivitamins/Minerals TAB* 1 tab PO DAILY 11/01/19 11/01/19 History [Theragran/minerals TAB*] HPI: The patient was in his usual state of health until this AM when he eveloped numbness of his Left fingers, lip, and thigh at separate times, each episode lasting 5-10 minutes. He never had similar feelings before. Both his feet are numb from his neuropathy. He states he drinks a six-pack of beer per day. He forgot to take his ASA for several days, states he took it today. Family History: Findings - unremarkable. Social History: Findings - Alcohol use as above. Quit smoking 25 yrs ago. Lives with his who is his SDM. Past Medical History: Findings - Neuropathy, gout, HL, atrial fib. TURP. Review of Systems - Measurements Intake and Output: Intake and Output Last 24 Hours 10/30/19 10/31/19 11/01/1905/20 06:59 06:59 06:59 06:59 Weight 215 lb - Review of Systems Constitutional Symptoms: Positive: Weight Loss - Lost 50 lbs in past 2 years Dermatology: Positive: Normal HEENT: Positive: Normal Eyes: Positive: Normal Thyroid: Positive: Normal Pulmonary: Positive: Normal Cardiology: Positive: Other - atrial fib Gastroenterology: Positive: Normal Genital - Urinary: Positive: Normal Musculoskeletal: Positive: Joint Pain Endocrinology: Positive: Normal Hematologic/Lymphatic: Negative: Anemia, Easy Bruising, Hx Leukemia, Hx Lymphoma, Use of Anticoagulant, Use of Antiplatelet Drugs, Other Neurology: Positive: Numbness\Paresthesiae Psychiatry: Positive: Normal Allergic/Immunologic: Negative: Hx Anaphylaxis, Hx Angioedema, Hx Environmental, Hx Seasonal, Asthma, Hx HIV, Immunocompromise, Swollen Glands LymphNodes, Other Objective Active Medications: Albuterol (Ventolin Hfa Inhaler*) 2 puff INH Q4H PRN PRN Reason: cough, wheezing Aspirin (Aspirin 81 Mg Chew Tab*) 81 mg PO DAILY SHAHNAZ Atenolol (Tenormin Tab*) 25 mg PO DAILY SHAHNAZ Cetirizine HCl (Zyrtec*) 10 mg PO DAILY SHAHNAZ Diltiazem HCl (Cardizem Cd Cap*) 120 mg PO DAILY SHAHNAZ Mometasone Furoate (Nasonex (Nf)) 2 spray BOTH NARES DAILY SHAHNAZ Fluticasone/Salmeterol (Advair Hfa 23o/21 (Nf)) 1 puff INH BID SHAHNAZ; Protocol Vital Signs - 8 hr 11/01/19 11/01/19 11/01/19 11:07 11:49 11:50 Temperature 97.8 F Pulse Rate 135 105 104 Respiratory 18 Rate Blood Pressure 125/90 148/91 (mmHg) O2 Sat by Pulse 96 97 98 Oximetry 11/01/19 11/01/19 11/01/19 12:01 12:19 12:49 Temperature Pulse Rate 102 108 99 Respiratory Rate Blood Pressure 139/84 152/85 (mmHg) O2 Sat by Pulse 97 96 Oximetry 11/01/19 11/01/19 11/01/19 13:00 13:19 14:00 Temperature Pulse Rate 95 100 106 Respiratory Rate Blood Pressure 139/87 (mmHg) O2 Sat by Pulse 97 96 97 Oximetry 11/01/19 14:19 Temperature Pulse Rate Respiratory Rate Blood Pressure 163/80 (mmHg) O2 Sat by Pulse Oximetry Oxygen Devices in Use Now: None - Alert, partly up on ED stretcher. Neutral affect. Looks comfortable. Eyes: No Scleral Icterus Respiratory: Symmetrical Chest Expansion and Respiratory Effort, Clear to Auscultation, Clear to Percussion Cardiovascular: NL Sounds; No Murmurs; No JVD, No Edema, - - irreg Skin: No Nodules or Sclerosis - Marked symmetric erythema of face, sparing periorbital area. Neurological: Alert and Oriented x 3, - - Nl strength both hands and feet. No tremor. Result Diagrams: 11/01/19 11:17 11/01/19 11:17 Additional Lab and Data: Lab Results 11/01/19 11/01/19 Range/Units 11:17 11:17 WBC 8.5 (3.5-10.8) 10^3/uL RBC 5.03 (4.18-5.48) 10^6 /uL Hgb 17.1 (14.0-18.0) g/dL Hct 49 (42-52) % MCV 97 H (80-94) fL MCH 34 H (27-31) pg MCHC 35 (31-36) g/dL RDW 13 (10-15) % Plt Count 302 (150-450) 10^3/uL MPV 6.4 L (7.4-10.4) fL Neut % (Auto) 77.6 % Lymph % (Auto) 10.1 % Caroline % (Auto) 10.6 % Eos % (Auto) 1.4 % Baso % (Auto) 0.3 % Absolute Neuts (auto) 6.6 (1.5-7.7) 10^3/ul Absolute Lymphs (auto) 0.9 L (1.0-4.8) 10^3/ul Absolute Monos (auto) 0.9 H (0-0.8) 10^3/ul Absolute Eos (auto) 0.1 (0-0.6) 10^3/ul Absolute Basos (auto) 0.0 (0-0.2) 10^3/ul Absolute Nucleated RBC 0.0 10^3/ul Nucleated RBC % 0.1 Sodium 122 L (135-145) mmol/L Potassium 4.8 (3.5-5.0) mmol/L Chloride 90 L (101-111) mmol/L Carbon Dioxide 27 (22-32) mmol/L Anion Gap 5 (2-11) mmol/L BUN 9 (6-24) mg/dL Creatinine 0.71 (0.67-1.17) mg/dL Est GFR ( Amer) 136.0 (>60) Est GFR (Non-Af Amer) 112.4 (>60) BUN/Creatinine Ratio 12.7 (8-20) Glucose 159 H (70-100) mg/dL Calcium 9.1 (8.6-10.3) mg/dL Total Bilirubin 1.10 H (0.2-1.0) mg/dL AST 45 H (13-39) U/L ALT 22 (7-52) U/L Alkaline Phosphatase 153 H (34-104) U/L Troponin I 0.01 (<0.03) ng/mL Total Protein 7.5 (6.4-8.9) g/dL Albumin 3.4 (3.2-5.2) g/dL Globulin 4.1 H (2-4) g/dL Albumin/Globulin Ratio 0.8 L (1-3) Assess/Plan/Problems-Billing Assessment: - Patient Problems (1) Left sided numbness Current Visit: Yes Status: Acute Code(s): R20.0 - ANESTHESIA OF SKIN SNOMED Code(s): 66553366 Comment: L fingertips, L lip, L thigh not at same time, each area 5-10 minutes each. Discussed with Dr. Tristan. MRI, carotid US, echo with bubble study. Had echo at Dr. Clay's office 03/2019. Tele, continue ASA. (2) Hyponatremia Current Visit: Yes Status: Acute Code(s): E87.1 - HYPO-OSMOLALITY AND HYPONATREMIA SNOMED Code(s): 99931461 Comment: Chronic but usually not qute this low. Pt advised to quit alcohol. Fluid restriction. If no better 2/5 will start demeclocycline. (3) Alcoholism Current Visit: Yes Status: Acute Code(s): F10.20 - ALCOHOL DEPENDENCE, UNCOMPLICATED SNOMED Code(s): 5943425 Comment: Pt declined SW consult, states he has quit drinking on his own in the past. Thiamine ordered by Dr. Saada. PRN chlordiazepoxide. (4) Atrial fibrillation Current Visit: Yes Status: Acute Code(s): I48.91 - UNSPECIFIED ATRIAL FIBRILLATION SNOMED Code(s): 14878195 Comment: Followed by Dr. Clay, only on ASA for AC. Continue metoprolol. Tele.
[2019-11-01] MEDS ORDERED: Thiamine INJ* 500 MG in NS 0.9% 250 ML* 250 ML IV ONE (15:28)
[2019-11-01] MEDS ORDERED: chlordiazePOXIDE CAP* 25 MG PO PRN (16:00)
[2019-11-01] MEDS ORDERED: Lorazepam PYXIS KEY PRN (16:05)
[2019-11-01] MEDS ORDERED: LORazepam INJ* 2 MG/ML 1 ML VIAL IV PUSH PRN (16:05)
--- NOTE | 2019-11-01 16:16 | CONSULT ---
Consult Consult: Neurology Inpatient Consult Note Date of service: 11/01/2019 Reason for consult: Neurology was consulted by Dr. Callahan for suspected TIA. The history was obtained by the patient. Chief complaint: numbness on the left top part of the lip, hand and leg History of Present Illness: Mr. Ibrahima Jesus is a 64-year-old man with history of alcohol dependency and atrial fibrillation (on aspirin) who presented with transient numbness and tingling sensation in the upper part of his lip, tips of the left lateral digits, and left proximal thigh. The symptoms started at 1030 on 11/01/19 and resolved within five minutes. The symptoms started suddenly. He had no associated slurred speech, visual disturbance, or headache. He denied any weakness. He never had similar symptoms in the past. He has been off his aspirin for 7 days, but he did take an aspirin today after the symptoms started. He has not had any reoccurrence of symptoms. NIHSS: 0. He is not a candidate for iv alteplase or mechanical thrombectomy as stroke is low on the differential and he currently has no deficits. Labs, Imaging and Other Diagnostics: sodium: 122 IMAGING: CT head without contrast 11/01/19: no acute intracranial abnormalities. MRI brain without contrast 11/01/19: No acute stroke. Diffuse, abundant, T2 hyperintensities throughout the subcortical and cortical region consistent with small vessel ischemic changes. Old embolic infarcts is also a possibility. Past Medical History: Hypertension, atrial fibrillation, restrictive lung disease Family History: He thinks his brother may have had a stroke. No other family members have either stroke or seizures. Social History: The patient is . He denied any tobacco abuse. He smoked 25 years ago. He drinks 5-6 beers a day. Medications: Albuterol (Ventolin Hfa Inhaler*) 2 puff INH Q4H PRN PRN Reason: cough, wheezing Aspirin (Aspirin 81 Mg Chew Tab*) 81 mg PO DAILY SHAHNAZ Atenolol (Tenormin Tab*) 25 mg PO DAILY SHAHNAZ Cetirizine HCl (Zyrtec*) 10 mg PO DAILY SHAHNAZ Chlordiazepoxide (Librium Cap*) 25 mg PO Q2HR SHAHNAZ Diltiazem HCl (Cardizem Cd Cap*) 120 mg PO DAILY SHAHNAZ Thiamine HCl 500 mg/ Sodium (Chloride) 255 mls @ 255 mls/hr IV ONCE ONE Stop: 11/01/19 16:27 Mometasone Furoate (Nasonex (Nf)) 2 spray BOTH NARES DAILY SHAHNAZ Fluticasone/Salmeterol (Advair Hfa 23o/21 (Nf)) 1 puff INH BID SHAHNAZ; Protocol Allergies rifampin Allergy (Severe, Verified 11/01/19 15:10) Itching Review of Systems: A 14-point ROS was obtained and otherwise negative except for what was mentioned in the HPI. Physical Exam: Vitals: Vital Signs - 12 hr Temp Pulse Resp BP Pulse Ox 11/01/19 15:49 105 145/102 96 11/01/19 15:29 97.8 F 100 20 145/83 97 11/01/19 15:27 111 97 11/01/19 14:19 163/80 11/01/19 14:00 106 97 11/01/19 13:19 100 139/87 96 11/01/19 13:00 95 97 11/01/19 12:49 99 152/85 96 11/01/19 12:19 108 139/84 11/01/19 12:01 102 97 11/01/19 11:50 104 98 11/01/19 11:49 105 148/91 97 11/01/19 11:07 97.8 F 135 18 125/90 96 General: well nourished, well developed. Alert, cooperative, no apparent distress, appears stated age. Head: normocephalic, without obvious abnormality Eyes: conjunctivae/corneas clear Neck: supple, symmetrical. No carotid bruit. No lymphadenopathy. Lungs: Bilateral crackles. CV: irregular rhythm, S1, S2 normal, radial pulses palpable Extremities: normal range of motion with no cyanosis. Skin: no skin lesions or lacerations Psych: affect-broad and normal mood. Easy to establish rapport. Neurological examination: Mental status: awake; alert and oriented to person, place, time, & general circumstances; speech & language including expression, naming, repetition, & comprehension was assessed and found to be normal. Cranial nerves: I: not tested II, III, IV, : normal confrontation B/L, Pupils midrange and reactive to light , normal consensual response; extraocular muscles are intact; no ptosis; no conjugate or asymmetrical nystagmus V 1/2/3: sensation is intact on forehead, cheeks, and jaw region VII: no facial droop; facial symmetry while smiling & wrinkling of forehead; tight lid closure VIII: able to hear throughout the history process IX & X: symmetric palatal elevation XI: normal strength against resistance XII: tongue is symmetrical & midline with no atrophy or fasciculations Motor (R/L): no abnormal movements, no pronator drift. Normal bulk and tone throughout. No fasciculations. Neck extension 5. Shoulder ROM is full. Shoulder abduction 5/5. Elbow flexion 5/5, extension 5/5. Wrist flexion 5/5, extension 5/5. Finger flexion 5/5, extension 5/5, abduction 5/5. Hip flexion 5/5, abduction 5/5. Knee flexion 5/5, extension 5/5. Ankle dorsiflexion 5/5, plantarflexion 5/5. Great toe extension 5/5. Reflexes R L Brachioradialis 2+ 2+ Biceps 2+ 2+ Triceps 2+ 2+ Patella 1 1 Ankle 0 0 Plantar flexor flexor Sensation is intact to light touch throughout. Absent vibration at the toes. Coordination: normal finger to nose and rapid alternating movements. Gait & Station: narrow based; normal stance and gait. No ataxia. Assessment: Mr. Ibrahima Jesus is a 64-year-old man with history of alcohol dependency, chronic alcohol related neuropathy and hyponatremia, who presented after having a transient episode of left perioral, hand, and leg numbness. NIHSS: 0. He is not a candidate for IV alteplase or mechanical thrombectomy. 1. Transient paresthesia of the left perioral region, hand, and leg. The differential diagnosis is broad and include TIA to the right thalamus. Other differential diagnosis include symptomatic hyponatremia. 2. Multifocal area of T2 hyperintensities suggestive of small vessel ischemic disease. The degree of T2 changes is concerning for small previous asymptomatic embolic strokes 3. Alcohol dependency 4. Paroxysmal atrial fibrillation, not on anticoagulation therapy. 5. Hypertension 6. Alcohol related polyneuropathy Recommendations: - I recommend switching him from aspirin to Eliquis 5 mg by mouth twice daily. [id number] score of 3. My biggest concern is that he has abundant T2 hyperintensities in both the anterior and posterior circulation suggestive of small embolic strokes in the past. He is at risk for stroke. The reason he is not on anticoagulation therapy is due to epistaxis while on Xarelto. - He does not need to be on aspirin therapy if Eliquis is started. - Admit to the observation unit - Encouraged him to reduce his alcohol intake to no more than 2 beers a day. He agreed. - Thiamine 500 mg IV x 1 to help prevent any further paresthesia if it was related to thiamine deficiency. He does not appear to be having Wernicke's. Monitor for alcohol withdrawal. - Recommend thiamine replacement, 100 mg daily. - Please do not increase his sodium level more than 6mmol/l in 24 hours. 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 - Obtain a TTE with bubble study and carotid ultrasound. No need for intracranial imagine as we are not worried about intracranial disease, and he will require to be on anticoagulation therapy. - Obtain a liver panel, B12, B1, and TSH levels. - Hold off on statin therapy due to elevated AST and bilirubin level. Start statin therapy if his liver function is within normal range. - DVT prophylaxis: SCDs. I will continue to follow. Anticipated discharge: tomorrow morning. Neurology will continue to follow. Discussed the above recommendations with MD Kilo Knapp MD Date: 11/01/2019 Time: 6856
[2019-11-01 16:26] LABS: TSH (Thyroid Stimulating Horm) 2.17 mcIU/mL (0.34-5.60)
[2019-11-01] MEDS: Mometasone/Formoter 200/5 MDI INH SCH (21:12)
[2019-11-01] MEDS ORDERED: Atenolol TAB* 25 MG PO SCH (23:30)
[2019-11-02] MEDS: Mometasone/Formoter 200/5 MDI INH SCH (07:36)
[2019-11-02] MEDS ORDERED: Fluticasone NASAL SPRAY 50MCG* 16 gm SPRAY BTL BOTH NARES SCH (09:00)
[2019-11-02] MEDS ORDERED: Cetirizine* 10 MG TAB PO SCH (09:00)
[2019-11-02] MEDS ORDERED: Aspirin 81 mg CHEW TAB* 81 MG TAB.CHEW PO SCH (09:00)
[2019-11-02] MEDS ORDERED: Diltiazem CD CAP* 120 MG PO SCH (09:00)
[2019-11-02 10:26] LABS: BUN/Creatinine Ratio 13.4 (8-20); Calcium 8.9 mg/dL (8.6-10.3); EGFR African American 145.4 (>60); EGFR Non-African American 120.2 (>60); Potassium 4.5 mmol/L (3.5-5.0)
[2019-11-02] MEDS ORDERED: Apixaban* 5 MG TAB PO SCH (12:00)
[2019-11-02 12:24] VITALS: BP 141/73
--- NOTE | 2019-11-02 21:14 | DS ---
CC: Sybil Zavala NP * DISCHARGE SUMMARY: DATE OF ADMISSION: DATE OF DISCHARGE: 11/02/19 HISTORY OF PRESENT ILLNESS/HOSPITAL COURSE: This 64-year-old man presented with numbness of left fingers, left lip, and left thigh. This occurred several times during the day. Each episode lasted between 5 and 10 minutes. He never had a similar problem before. He has chronic numbness of his feet from his known neuropathy. He says he had forgotten to take his aspirin for several days and said he did take it on the day of admission. He also stated that he drinks a 6-pack of beer a day. The rest of the history and physical exam is detailed on the admission note. Dr. Tristan saw the patient in consultation. The patient has a history of chronic recurrent atrial fibrillation. Clinically, it was not at all clear if the patient was having TIA or neuropathy or symptoms related to his hyponatremia. His sodium was 122. He has chronic hyponatremia but not usually this severe level. MRI of the brain showed multiple foci of elevated T2 flare signal. These are nonspecific findings but could be compatible with chronic small vessel ischemia. There is no evidence of acute infarct. Dr. Tristan is recommending the patient take Apixaban 5 mg b.i.d. He can stop his aspirin. His sodium kera to 128 in the hospital with simply fluid restriction. I told the patient that he should not drink any alcohol at all and if he had to drink beer, to drink the minimum amount that he is capable of doing. He will have a BMP in 8 days as an outpatient. FINAL DIAGNOSES: 1. Hyponatremia. 2. Question of transient ischemic attack. 3. Atrial fibrillation. 4. Alcoholism with peripheral neuropathy. A vitamin B1 level is pending. The patient did get intravenous B1 while in the hospital. I note his B12 level was normal at 749. TSH was also normal. AST was 45. The patient might be a candidate for statin therapy if he abstains from drinking and has normal liver function tests for a certain period of time. DISCHARGE MEDICATIONS: 1. Apixaban 5 mg b.i.d. 2. Tadalafil 5 mg daily. 3. Atenolol 25 mg daily. 4. Albuterol inhaler 2 puffs every 4 hours p.r.n. 5. Multivitamin with mineral daily. 6. Levocetirizine 5 mg daily. 7. Diltiazem CD 120 mg daily. 8. Mometasone nasal spray 2 sprays both naris daily. 9. Fluticasone/Salmeterol 230/21 inhaler 1 puff b.i.d. DISPOSITION ON DISCHARGE: Discharged home. CONDITION ON DISCHARGE: Improved. [id number]/[facility] #: [id number] MTDD
== END 2019-11-02 13:43 | disposition home or self-care (01) ==
LOC: ED 11:04 → MEDTELE 14:25
PROVIDERS: ADMIT Internal Medicine; ATTEND Internal Medicine
DX: R20.0 Anesthesia of skin (principal); E87.1 Hypo-osmolality and hyponatremia; I48.91 Unspecified atrial fibrillation; I10 Essential (primary) hypertension; F10.20 Alcohol dependence, uncomplicated; G62.1 Alcoholic polyneuropathy; Z79.899 Other long term (current) drug therapy; Z88.1 Allergy status to other antibiotic agents; Z87.891 Personal history of nicotine dependence; Z79.82 Long term (current) use of aspirin; R94.31 Abnormal electrocardiogram [ECG] [EKG]
CPT/HCPCS: 36415; 70450; 70551; 80048; 80053; 82607; 84425; 84443; 84484; 85025; 85610; 93880; 94640; 96365; 96366; 99284; A9270-GY; G0378; J3411